=== PATIENT | female | born 1940 | race Caucasian/White ===

== ENCOUNTER 2019-02-23 16:34 | Emergency (ER) | payer OTHER ==
[~2019-02-23] VITALS: Ht 162.6 cm; Wt 77.1 kg
[2019-02-23] MEDS ORDERED: VASOTEC5 MG (16:51)
[2019-02-23] MEDS ORDERED: LEVOTHYROXINE25 MCG (16:51)
[2019-02-23] MEDS ORDERED: NEXIUM40 M1 (16:51)
== END 2019-02-23 21:24 | disposition home or self-care (01) ==
LOC: ER 16:34
DX: R42 Dizziness and giddiness (principal); G25.2 Other specified forms of tremor; F41.8 Other specified anxiety disorders

== ENCOUNTER 2020-11-18 06:00 | Day surgery (SDC) | payer OTHER ==
[~2020-11-18 06:00] MED LIST: LASIX20 MG PO; LEVOTHYROXINE25 MCG; NEXIUM40 M1; VASOTEC5 MG
== END 2020-11-18 12:25 | disposition home or self-care (01) ==
LOC: CIR.AMB 06:00
PROVIDERS: ATTEND Orthopaedic Surgery Hand Surgery
DX: M65.331 Trigger finger, right middle finger (principal); Z20.822 Contact with and (suspected) exposure to COVID-19